=== PATIENT | female | born 1980 | race Two or more races ===

== ENCOUNTER 2017-04-18 06:26 | Inpatient (IN) | payer SELFPAY ==
[2017-04-18] VITALS (10 sets, daily range): BP systolic 80–117; BP diastolic 54–68
[~2017-04-18] VITALS: Ht 144.8 cm; Wt 55.8 kg
[2017-04-18] MEDS ORDERED: 0.9 % SODIUM CHLORIDE 10 ML DISP.SYRIN. IV PRN ×2 (07:15→10:30)
[2017-04-18] MEDS ORDERED: CITRIC ACID/SODIUM CITRATE 30 ML SOLUTION. PO PRN (07:15)
[2017-04-18] MEDS ORDERED: OXYTOCIN 30 UNIT/500 ML PREMIX 500 ML IV PRN ×2 (07:15→10:30)
[2017-04-18] MEDS ORDERED: TERBUTALINE 1 MG/ML VIAL. SQ PRN (07:15)
[2017-04-18] MEDS ORDERED: LIDOCAINE 1% PF 30 ML VIAL. INJ PRN (07:15)
[2017-04-18 07:38] LABS: HEMATOCRIT 39.1 % (36.0-47.0); HEMOGLOBIN 13.1 g/dL (12.0-15.5); RED BLOOD COUNT 4.19 x10^6/uL (3.50-5.40); WHITE BLOOD COUNT 10.7 x10^3/uL (4.0-11.0)
[2017-04-18] MEDS ORDERED: ONDANSETRON PF 4 MG/2 ML VIAL. ONE (08:20)
[2017-04-18] MEDS ORDERED: OXYTOCIN 10 UNIT/ML VIAL. ONE ×3 (08:20→09:57)
[2017-04-18] MEDS ORDERED: PHENYLEPHRINE in 0.9% NACL PF 1 MG/10 ML DISP.SYRIN. IV ONE (08:20)
[2017-04-18] MEDS ORDERED: FAMOTIDINE 20 MG/2 ML VIAL ONE (08:21)
[2017-04-18] MEDS ORDERED: METOCLOPRAMIDE HCL 10 MG/2 ML VIAL. ONE (08:21)
[2017-04-18] MEDS ORDERED: MORPHINE PF 5 MG/10 ML VIAL. ONE (08:27)
[2017-04-18] MEDS ORDERED: fentaNYL PF VIAL 100 MCG/2 ML VIAL ONE (08:27)
--- NOTE | 2017-04-18 10:27 | PDOC ---
SUBJECTIVE Subjective 36 yrs old EDC [id number] Mayra patient in Labor Previous Csection OBJECTIVE Objective Patient in Active Labor Vital Signs Stable Vital Signs Vital Signs Date Time Temp Pulse Resp B/P (MAP) Pulse Ox O2 Delivery O2 Flow Rate FiO2 04/18/17 06:59 99.1 66 24 117/67 (84) Room Air 99.1 ASSESSMENT/PLAN Assessment/Plan Patient in Labor Plan Repeat immediately Problems: COMMENT Lab Laboratory Tests Test 04/18/17 06:40 White Blood Count 10.7 x10^3/uL (4.0-11.0) Red Blood Count 4.19 x10^6/uL (3.50-5.40) Hemoglobin 13.1 g/dL (12.0-15.5) Hematocrit 39.1 % (36.0-47.0) Mean Corpuscular Volume 93 fL (79-100) Mean Corpuscular Hemoglobin 31 pg (25-35) Mean Corpuscular Hemoglobin Concent 34 g/dL (31-37) Red Cell Distribution Width 16.0 % (11.5-14.5) Platelet Count 197 x10^3/uL (140-400) NICK PRITCHETT MD Apr 18, 2017 10:27
[2017-04-18] MEDS ORDERED: ONDANSETRON PF 4 MG/2 ML VIAL. IV PRN (10:30)
[2017-04-18] MEDS ORDERED: MMR per PROTOCOL. MC PRN (10:30)
[2017-04-18] MEDS ORDERED: ZOLPIDEM 5 MG TABLET. PO PRN (10:30)
[2017-04-18] MEDS ORDERED: HYDROCORTISONE 1% TOPICAL OINTMENT 30GM TUBE. TP PRN (10:30)
[2017-04-18] MEDS ORDERED: diphenhydrAMINE ORAL ELIXIR 12.5 MG/5 ML ML PO PRN (10:30)
[2017-04-18] MEDS ORDERED: MAG HYDROX/ALUMINUM HYD/SIMETH 30 ML ORAL.SUSP PO PRN (10:30)
[2017-04-18] MEDS: IV RINGERS,LACTATED 1000ML 1,000 ML IV SCH ×2 (15:04→22:55)
--- NOTE | 2017-04-18 15:24 | PDOC ---
OBJECTIVE Vital Signs Vital Signs Date Time Temp Pulse Resp B/P (MAP) Pulse Ox O2 Delivery O2 Flow Rate FiO2 04/18/17 13:50 59 16 100/61 (74) 04/18/17 13:00 97.9 57 18 96/54 (68) 98 Room Air 97.9 04/18/17 06:59 99.1 66 24 117/67 (84) Room Air 99.1 PHYSICAL EXAM Physical Exam Under Spinal Block Repeat done and Alive Male Baby delivered at 9.52 am Baby wt 3135 G EBL 500 cc ASSESSMENT/PLAN Assessment/Plan Repeat Done Problems: COMMENT Lab Laboratory Tests Test 04/18/17 06:40 White Blood Count 10.7 x10^3/uL (4.0-11.0) Red Blood Count 4.19 x10^6/uL (3.50-5.40) Hemoglobin 13.1 g/dL (12.0-15.5) Hematocrit 39.1 % (36.0-47.0) Mean Corpuscular Volume 93 fL (79-100) Mean Corpuscular Hemoglobin 31 pg (25-35) Mean Corpuscular Hemoglobin Concent 34 g/dL (31-37) Red Cell Distribution Width 16.0 % (11.5-14.5) Platelet Count 197 x10^3/uL (140-400) NICK PRITCHETT MD Apr 18, 2017 15:24
[2017-04-18] MEDS: FERROUS SULFATE 325 MG TABLET. PO SCH (17:00)
[2017-04-19 01:40] VITALS: BP 83/50
[2017-04-19 05:20] LABS: RPR REFLEX Non Reactive (Non Reactive)
[2017-04-19] MEDS: IBUPROFEN 600 MG TABLET. PO SCH ×3 (06:15→14:45)
[2017-04-19 06:20] VITALS: BP 90/61
--- NOTE | 2017-04-19 07:33 | PDOC ---
SUBJECTIVE Subjective Patient has no problems OBJECTIVE Objective Doing ok No fever Vital Signs Vital Signs Date Time Temp Pulse Resp B/P (MAP) Pulse Ox O2 Delivery O2 Flow Rate FiO2 04/19/17 06:20 98.1 82 18 90/61 (71) 94 Room Air 98.1 04/19/17 01:40 98.4 79 18 83/50 (61) 95 Room Air 98.4 04/18/17 21:00 98.6 94 18 80/55 (63) 95 Room Air 98.6 04/18/17 17:16 74 18 110/68 (82) 04/18/17 16:15 68 18 100/66 (77) 04/18/17 15:37 64 18 98/66 (77) 04/18/17 15:05 62 18 102/60 (74) 04/18/17 14:30 56 18 99/62 (74) 04/18/17 14:05 58 101/58 (72) 04/18/17 13:50 59 16 100/61 (74) 04/18/17 13:00 97.9 57 18 96/54 (68) 98 Room Air 97.9 I & O Intake and Output 04/19/17 07:00 Intake Total 5090 ml Output Total 4600 ml Balance 490 ml Intake Oral 1090 ml Other 4000 ml Output Urine Total 4600 ml PHYSICAL EXAM Physical Exam Abdomen soft Normal Lochia ASSESSMENT/PLAN Assessment/Plan Patient to walk today Breast feeding Problems: NICK PRITCHETT MD Apr 19, 2017 07:33
[2017-04-19] MEDS: FERROUS SULFATE 325 MG TABLET. PO SCH (08:00)
[2017-04-19] MEDS: oxyCODONE/APAP 5/325 1 TAB TABLET PO PRN ×3 (08:13→20:23)
[2017-04-19] MEDS: DOCUSATE SODIUM 100 MG CAPSULE. PO PRN (08:13)
[2017-04-19 10:38] VITALS: BP 85/56
[2017-04-19 14:53] VITALS: BP 94/57
[2017-04-19 20:45] VITALS: BP 93/67
[2017-04-20] MEDS: IBUPROFEN 600 MG TABLET. PO PRN ×2 (03:17→13:08)
[2017-04-20] MEDS: oxyCODONE/APAP 5/325 1 TAB TABLET PO PRN ×4 (03:18→18:18)
[2017-04-20 05:00] VITALS: BP 102/71
[2017-04-20] MEDS: DOCUSATE SODIUM 100 MG CAPSULE. PO PRN (08:24)
[2017-04-20 09:25] VITALS: BP 98/62
--- NOTE | 2017-04-20 11:44 | PDOC ---
SUBJECTIVE Subjective Patient nursing the baby OBJECTIVE Objective No problems No Fever Vital Signs Vital Signs Date Time Temp Pulse Resp B/P (MAP) Pulse Ox O2 Delivery O2 Flow Rate FiO2 04/20/17 09:25 97.7 81 18 98/62 (74) Room Air 97.7 04/20/17 08:24 Room Air 04/20/17 05:00 97.4 67 16 102/71 (81) 97.4 04/19/17 20:45 97.6 72 14 93/67 (76) 97.6 04/19/17 14:53 97.9 88 18 94/57 (69) 97.9 I & O Intake and Output 04/20/17 07:00 Intake Total 280 ml Output Total 500 ml Balance -220 ml Intake Oral 280 ml Output Urine Total 500 ml # Voids 2 PHYSICAL EXAM Physical Exam Normal Lochia Incision healing well ASSESSMENT/PLAN Assessment/Plan Plan dismissal in AM Problems: NICK PRITCHETT MD Apr 20, 2017 11:43
[2017-04-20 16:15] VITALS: BP 109/81
[2017-04-20 20:40] VITALS: BP 110/72
[2017-04-21] MEDS: IBUPROFEN 600 MG TABLET. PO PRN ×2 (01:59→11:11)
[2017-04-21] MEDS: oxyCODONE/APAP 5/325 1 TAB TABLET PO PRN (02:00)
[2017-04-21 06:33] VITALS: BP 104/75
--- NOTE | 2017-04-21 07:59 | PDOC ---
SUBJECTIVE Subjective No Problems OBJECTIVE Objective No fever No other concerns Vital Signs Vital Signs Date Time Temp Pulse Resp B/P (MAP) Pulse Ox O2 Delivery O2 Flow Rate FiO2 04/21/17 06:33 97.9 72 18 104/75 (85) 97 Room Air 97.9 04/21/17 02:00 18 Room Air 04/20/17 20:40 98.3 74 18 110/72 (85) 97 Room Air 98.3 04/20/17 19:20 18 Room Air 04/20/17 18:18 18 Room Air 04/20/17 16:15 97.7 69 18 109/81 (90) Room Air 97.7 04/20/17 13:08 Room Air 04/20/17 09:25 97.7 81 18 98/62 (74) Room Air 97.7 04/20/17 08:24 Room Air PHYSICAL EXAM Physical Exam Abdomen soft Uterus firm Lochia normal ASSESSMENT/PLAN Assessment/Plan Patient to go home today RTO in 2 weeks Problems: NICK PRITCHETT MD Apr 21, 2017 07:59
[2017-04-21] MEDS: DOCUSATE SODIUM 100 MG CAPSULE. PO PRN (11:10)
[2017-04-21 11:20] VITALS: BP 106/71
== END 2017-04-21 12:00 | disposition home or self-care (01) | DRG 766 ==
LOC: OBSVTOIN 06:26 → 3 SO LND 06:26 → 3 NORTH 13:10
PROVIDERS: ADMIT Obstetrics & Gynecology; ATTEND Obstetrics & Gynecology
PROC: 10D00Z1 Extraction of Products of Conception, Low, Open Approach (ICD-10-PCS; principal; 2017-04-18)
DX: O32.1XX0 Maternal care for breech presentation, not applicable or unspecified (principal); O34.211 Maternal care for low transverse scar from previous cesarean delivery; Z3A.37 37 weeks gestation of pregnancy; Z37.0 Single live birth
CPT/HCPCS: 36415; 85027; 86593; 86850; 86900; 86901; C1887; J0690; J2270; J2370; J2405; J2590; J2765; J3010; J7120; S0028; A6539